=== PATIENT | male | born 1960 | race Caucasian/White ===

== ENCOUNTER 2017-03-08 19:40 | Emergency (ER) | payer SELFPAY ==
--- NOTE | 2017-03-08 20:40 | ED Physician Chart ---
ED Chief Complaint/HPI - Patient Information Date Seen:: 03/08/17 Time Seen:: 20:30 Chief Complaint:: altered level of consciousness History of Present Illness:: [place] He is homeless. He denies alcohol consumption today. His chief complaint is seizures. He stated his last seizure was 2 weeks ago. Allergies:: Allergies Allergy/AdvReac Type Severity Reaction Status Date / Time phenytoin [From Dilantin] Allergy Verified 03/08/17 19:46 Vitals:: Vital Signs - 8 hr 03/08/17 19:53 Temp 98.7 F HR 83 RR 17 BP 123/77 O2 Sat % 96 Historian:: Patient, EMS, Family Member Review:: Nurse's Note Reviewed ED Review of Systems - Review of Systems General/Constitutional: No fever, No chills Skin: No skin lesions Head: No headache ENT: No earache Neck: No neck pain, No swelling Cardio Vascular: No chest pain, No palpitations Pulmonary: No SOB GI: No nausea, No vomiting, No diarrhea Musculoskeletal: No bone or joint pain Endocrine: No polyuria, No polydipsia Psychiatric: No prior psych history, No depression, No anxiety Hematopoietic: No bruising Allergic/Immuno: No urticaria Neurological: No syncope ED Past Medical History - Past Medical History Past Medical History: Seizures Family History: None Social History: Non Smoker Psychiatricy History: None Family Medical History - Family Member Mother History Unknown: Yes ED Physical Exam - Physical Examination General/Constitutional: Well-developed, well-nourished, Alert, No distress Head: Atraumatic Eyes: Lids, conjuctiva normal, PERRL Skin: Nl inspection, No rash ENMT: External ears, nose nl, TM canals nl, Nasal exam nl, Lips, teeth, gums nl Neck: No nuchal rigidity Respiratory: Nl effort/Exclusion, No Wheeze/Rhonchi/Rales Cardio Vascular: RRR, No murmur, gallop, rubs, NL S1 S2 GI: No tenderness/rebounding/guarding : No CVA tenderness Extremities: Normal digits & nails Neuro/Psych: No focal deficits ED Labs/Radiology/EKG Results - Radiology Results Results: Laboratory Results - last 24 hr 03/08/17 21:10 WBC 4.2 L RBC 3.74 L Hgb 10.6 L Hct 31.8 L MCV 84.9 MCH 28.4 MCHC Differential 33.4 RDW 15.9 Plt Count 141 L MPV 6.5 Laboratory Results - last 24 hr 03/08/17 03/08/17 03/08/17 21:10 21:10 21:10 WBC 4.2 L RBC 3.74 L Hgb 10.6 L Hct 31.8 L MCV 84.9 MCH 28.4 MCHC Differential 33.4 RDW 15.9 Plt Count 141 L MPV 6.5 Band Neutrophils % 0 Neutrophils (Manual) 45 Lymphocytes 31 Monocytes 13 H Eosinophils 1 Basophils 0 Platelet Estimate ADEQUATE Platelet Morphology NORMAL RBC Morph Micro Appear NORMAL Sodium 131 L Potassium 3.4 L Chloride 96 L Carbon Dioxide 24.2 Anion Gap 14.2 BUN 9 Creatinine 0.8 Est GFR ( Amer) > 60.0 Est GFR (Non-Af Amer) > 60.0 BUN/Creatinine Ratio 11.3 Glucose 105 Calcium 9.1 Ethyl Alcohol 235 H ED Septic Shock - . Is Septic Shock (SBP<90, OR Lactate>4 mmol\L) present?: No - <6hrs of presentation: Vital Signs: Vital Signs - 8 hr 03/08/17 19:53 Temp 98.7 F HR 83 RR 17 BP 123/77 O2 Sat % 96 ED Reassessment (Disposition) - Reassessment Reassessment Condition:: Improved - Diagnosis Diagnosis:: Anemia; acute alcohol intoxication - Aftercare/Follow up Instructions Aftercare/Follow-Up Instructions:: Refer to Discharge Instructions - Patient Disposition Discharge/Transfer:: Home Condition at Disposition:: Stable, Improved
[2017-03-08 21:20] LABS: HEMATOCRIT 31.8 % (41.0-60); HEMOGLOBIN 10.6 gm/dL (12-16); MANUAL DIFF REQUIRED? YES; MEAN CELL VOLUME 84.9 fl (80-99); MEAN CORPUSCULAR HEMOGLOBIN 28.4 pg (26.0-30.0); MEAN CORPUSCULAR HGB CONC 33.4 pg (28.0-36.0); MEAN PLATELET VOLUME 6.5 fl; PLATELET COUNT 141 Th/cmm (150-400); RED BLOOD COUNT 3.74 Mil/cmm (4.30-5.70); RED CELL DISTRIBUTION WIDTH 15.9 % (11.5-20.0); WHITE BLOOD COUNT 4.2 Th/cmm (4.8-10.8)
[2017-03-08 21:34] LABS: ANION GAP 14.2 (7.0-16.0); BUN - UREA NITROGEN 9 mg/dL (7-25); CALCIUM SERUM 9.1 mg/dL (8.6-10.3); CARBON DIOXIDE 24.2 mEq/L (21.0-31.0); CHLORIDE 96 mEq/L (98-107); CREATININE - SERUM 0.8 mg/dL (0.7-1.3); GFR AFRICAN-AMERICAN > 60.0 ml/min (>90); GFR NON AFRICAN-AMERICAN > 60.0 ml/min; GLUCOSE 105 mg/dL (70-105); POTASSIUM SERUM 3.4 mEq/L (3.5-5.1); SODIUM SERUM 131 mEq/L (136-145)
[2017-03-08 21:52] LABS: BAND NEUTROPHILE 0 % (0-10); BASOPHIL 0 % (0-3); EOSINOPHIL 1 % (0-5); LYMPHOCYTE 31 % (20-50); MONOCYTE 13 % (2-10); NEUTROPHILS 45 % (40-80); PLATELET ESTIMATE ADEQUATE (NORMAL); PLATELET MORPHOLOGY NORMAL (NORMAL); TOTAL CELLS COUNTED 100
== END 2017-03-09 06:30 | disposition home or self-care (01) ==
LOC: ER 19:40
DX: F10.129 Alcohol abuse with intoxication, unspecified (principal); D64.9 Anemia, unspecified; Z88.8 Allergy status to other drugs, medicaments and biological substances
CPT/HCPCS: 36415-UA; 80048-TC; 80320-TC; 85007-TC; 85027-TC; Z7502